=== PATIENT | female | born 1970 ===

== ENCOUNTER 2021-11-03 05:55 | Day surgery (SDC) | payer OTHER | END 2021-11-03 09:30 | disposition home or self-care (01) | LOC: AMB-ENDOS 05:55 | PROVIDERS: ATTEND Surgery | DX: K29.70 Gastritis, unspecified, without bleeding (principal); E66.01 Morbid (severe) obesity due to excess calories; I10 Essential (primary) hypertension; K76.0 Fatty (change of) liver, not elsewhere classified ==